=== PATIENT | female | born 1965 | race Caucasian/White ===

== ENCOUNTER 2019-04-03 10:29 | Observation (INO) | payer BC, OTHER ==
[~2019-04-03] VITALS: Ht 165.1 cm; Wt 78.4 kg
[~2019-04-03 10:29] MED LIST: NO HOME MEDS
[2019-04-03 11:21] LABS: BASOPHILS # (AUTO) 0.1 X10'3 (0-0.2); EOSINOPHILS # (AUTO) 0.1 X10'3 (0-0.9); HEMATOCRIT 43.3 % (35.0-45.0); HEMOGLOBIN 14.9 g/dl (12.0-16.0); LYMPHOCYTES # (AUTO) 2.9 X10'3 (1.1-4.8); LYMPHOCYTES % (AUTO) 31.8 % (21-51); MEAN CORPUSCULAR HEMOGLOBIN 30.7 PG (27.0-31.0); MEAN CORPUSCULAR HGB CONC 34.4 g/dL (33.0-36.5); MEAN CORPUSCULAR VOLUME 89.1 FL (78-98); MEAN PLATELET VOLUME 7.7 FL (7.4-10.4); MONOCYTES # (AUTO) 0.5 X10'3 (0-0.9); MONOCYTES % (AUTO) 5.8 % (2-12); NEUTROPHILS # (AUTO) 5.5 X10'3 (1.8-7.7); NEUTROPHILS % (AUTO) 60.4 % (42-75); PLATELET COUNT 289 X10'3 (140-440); RED BLOOD COUNT 4.86 X10'6 (4.20-5.60); RED CELL DISTRIBUTION WIDTH 14.1 % (11.5-14.5); WHITE BLOOD COUNT 9.1 X10'3 (4.5-11.0)
[2019-04-03 11:35] LABS: PARTIAL THROMBOPLASTIN TIME 29 SECONDS (22-32)
[2019-04-03 11:37] LABS: ALANINE AMINOTRANSFERASE 23 U/L (12-78); ALBUMIN 3.9 G/DL (3.4-5.0); ALBUMIN/GLOBULIN RATIO 1.2 (1.1-1.5); ALKALINE PHOSPHATASE 87 IU/L (46-116); ANION GAP 10 (8-16); ASPARTATE AMINO TRANSFERASE 14 U/L (10-37); BILIRUBIN,TOTAL 0.5 MG/DL (0.1-1.0); BLOOD UREA NITROGEN 15 MG/DL (7-18); BUN/CREATININE RATIO 21.1 (6.6-38.0); CHLORIDE 104 MMOL/L (99-107); CREATININE 0.71 MG/DL (0.40-0.90); GLUCOSE 105 MG/DL (70-104); POTASSIUM 4.3 MMOL/L (3.5-5.1); SODIUM 137 MMOL/L (135-145); TOTAL CARBON DIOXIDE 22.7 MMOL/L (24-32); TOTAL PROTEIN 7.2 G/DL (6.4-8.2); eGFR 86 ML/MIN
--- NOTE | 2019-04-03 11:54 | NUR ---
DR. ORTIZ IS IN SURGERY AND WILL BE CALLING BACK WHEN HE'S DONE
[2019-04-03] MEDS ORDERED: normal saline 1000ml 1,000 ML IV SCH (13:19)
[2019-04-03] MEDS ORDERED: ondansetron/PF 4mg/2ml inj IV PRN (13:20)
[2019-04-03] MEDS ORDERED: mag hydrox/Alum hydrox/simeth 30ml oral suspension PO PRN (13:20)
[2019-04-03] MEDS ORDERED: acetaminophen 325mg tablet PO PRN (13:20)
[2019-04-03] MEDS ORDERED: morphine 2 MG/ML inj. syringe IV PRN (13:20)
[2019-04-03] MEDS ORDERED: magnesium hydroxide 30ml (MOM) UD suspension PO PRN (13:20)
--- NOTE | 2019-04-03 15:08 | NUR ---
Spoke with metallurgical lab technician regarding patient being on schedule for heart catheterization today. Stated that patient was not on the schedule, but may be will be added tomorrow morning. Will discuss with Dr. Clayton.
--- NOTE | 2019-04-03 15:20 | NUR ---
Spoke with Dr. Clayton regarding potential heart catheterization today as written by Dr. Del Cid progress note. He stated that he was told that it would be today also. I had spoken with agriculture laboratory technician who currently do not have patient on schedule for cath today. Call answering service for Dr. Arevalo to confirm date of catheterization. Eileen stated, "Dr. Sims will call the optical lab technician and deal with them." Will keep patient NPO until further notice.
[2019-04-03] MEDS ORDERED: nitroGLYCERIN 0.4mg SUBLingual tab SL PRN (15:45)
[2019-04-03] MEDS ORDERED: LIDOcaine 1% (10mg/ml)w/preservative injection 20ml MDV ONE (16:24)
[2019-04-03] MEDS ORDERED: iohexol 350MG/ML 100ml bottle IV ONE (16:24)
[2019-04-03] MEDS ORDERED: fentaNYL/PF 50MCG/1 ML 2ML syringe ONE (16:27)
[2019-04-03] MEDS ORDERED: midazolam 2 mg/2 ml injection ONE ×2 (16:28→17:00)
--- NOTE | 2019-04-03 17:54 | NUR ---
pt arrived to floor via gurney and transferred to hospital bed. received bedside report from Martin MARTÍNEZ; all questions answered. right groin cath site soft and no drainage.
[2019-04-03 18:00] VITALS: BP 120/53
[2019-04-03] MEDS ORDERED: OXAZEpam 15mg capsule PO PRN (18:10)
[2019-04-03] MEDS ORDERED: HYDROcodone/acetaminophen 10/325mg tab PO PRN (18:15)
[2019-04-03] MEDS ORDERED: HYDROcodone/acetaminophen 5mg/325mg tablet PO PRN (18:15)
[2019-04-03] MEDS ORDERED: proCHLORperazine 10 MG/2 ml inj IV PRN (18:15)
[2019-04-03] MEDS ORDERED: carVEDilol 3.125mg tablet PO SCH (20:00)
[2019-04-03] MEDS ORDERED: heparin, porcine 5000 units/ml vial SQ SCH (20:00)
[2019-04-03] MEDS ORDERED: NO HOME MEDS (20:21)
[2019-04-04] MEDS ORDERED: atorvastatin 20mg tablet PO SCH (08:00)
[2019-04-04] MEDS ORDERED: aspirin 81mg tablet.DR PO SCH (08:00)
== END 2019-04-03 20:50 | disposition home or self-care (01) ==
LOC: ER 10:30 → MED 3N 18:00
PROVIDERS: ADMIT Family Medicine; ATTEND Family Medicine
DX: R07.89 Other chest pain (principal); F17.210 Nicotine dependence, cigarettes, uncomplicated; Z90.710 Acquired absence of both cervix and uterus
CPT/HCPCS: 36415; 71045; 80053; 84484; 85025; 85610; 85730; 87070; 93005; 93458; 96372; 99284; A6257; C1769; G0378; J1644; J2001; J2250; J3010; Q9967; 99152; A4620; J7030